=== PATIENT | female | born 1985 | race Caucasian/White ===

== ENCOUNTER 2020-02-04 02:04 | Emergency (ER) | payer SELFPAY ==
[~2020-02-04] VITALS: Ht 152.4 cm; Wt 49.9 kg
[2020-02-04 02:43] LABS: BASOPHIL % 0.3 % (0-2); PLATELET COUNT 330 x10^3mcL (130-400); RED CELL DISTRIBUTION WIDTH 13.8 % (11.5-14.5)
[2020-02-04 02:52] LABS: CARBON DIOXIDE 26.6 mmol/L (21-32); CHLORIDE SERUM 105 mmol/L (98-107); GFR1 > 60 mL/min; GLUCOSE SERUM 89 mg/dL (74-106); POTASSIUM SERUM 3.6 mmol/L (3.5-5.1); SODIUM SERUM 141 mmol/L (136-145)
[2020-02-04 02:57] LABS: ALKALINE PHOSPHATASE 66 U/L (46-116); ALT/SGPT 32 U/L (14-59); AST/SGOT 21 U/L (15-37); BILIRUBIN TOTAL 0.22 mg/dL (0.20-1.00); TOTAL PROTEIN, SERUM 7.5 g/dL (6.4-8.2)
[2020-02-04 03:01] LABS: microscopic required? YES; urine erythrocyte TRACE (NEGATIVE)
[2020-02-04 03:07] LABS: AMPHETAMINE QUAL UR NONE DETECTED (See below)
[2020-02-04 05:11] VITALS: BP 90/67
== END 2020-02-04 05:11 | disposition home or self-care (01) ==
LOC: ED 02:04
PROVIDERS: Emergency Medicine
DX: R45.851 Suicidal ideations (principal); F10.129 Alcohol abuse with intoxication, unspecified; F32.9 Major depressive disorder, single episode, unspecified; F41.9 Anxiety disorder, unspecified; F17.210 Nicotine dependence, cigarettes, uncomplicated; F43.10 Post-traumatic stress disorder, unspecified; F90.9 Attention-deficit hyperactivity disorder, unspecified type; Z20.828 Contact with and (suspected) exposure to other viral communicable diseases; Z90.89 Acquired absence of other organs; X58.XXXA Exposure to other specified factors, initial encounter; Y93.89 Activity, other specified; Y92.89 Other specified places as the place of occurrence of the external cause; Y99.8 Other external cause status
CPT/HCPCS: G0480; U0003-CS